=== PATIENT | male | born 1970 | race Caucasian/White ===

== ENCOUNTER 2025-08-05 16:10 | Emergency (ER) | payer SELFPAY ==
[~2025-08-05] VITALS: Ht 180.3 cm; Wt 80.0 kg
[2025-08-05 16:30] VITALS: BP 132/90; PULSE 88; RESP 18; TEMP 36.9; O2SAT 98
== END 2025-08-05 16:34 | disposition left against medical advice (07) ==
LOC: ER 16:10
DX: F10.129 Alcohol abuse with intoxication, unspecified (principal); Z53.21 Procedure and treatment not carried out due to patient leaving prior to being seen by health care provider; Y90.9 Presence of alcohol in blood, level not specified
CPT/HCPCS: 99281

== ENCOUNTER 2025-08-06 15:28 | Emergency (ER) | payer SELFPAY ==
[~2025-08-06] VITALS: Ht 188 cm; Wt 82.0 kg
[2025-08-06 15:34] VITALS: O2SAT 99
[2025-08-06 16:25] LABS: BASOPHILS % 1.2 % (0.0-2.0); EOSINOPHILS % 1.9 % (0.0-5.0); HEMATOCRIT. 48.1 % (42.0-52.0); HEMOGLOBIN. 16.4 g/dL (14.0-18.0); LYMPHOCYTES % 40.5 % (20.0-50.0); MEAN PLATELET VOLUME 6.5 fl (7.4-10.4); MONOCYTES % 5.9 % (2.0-8.0); NEUTROPHILS % 50.5 % (40.0-76.0); PLATELET 321 x1000/uL (130-400); RED BLOOD CELL COUNT 5.10 mill/uL (4.7-6.1); RED CELL DISTRIBUTION WIDTH 13.2 % (11.6-14.6)
[2025-08-06 16:43] LABS: CREATININE 1.0 mg/dL (0.6-1.3)
[2025-08-06 16:44] LABS: UREA NITROGEN BLOOD 8 mg/dL (9-23)
[2025-08-06 16:45] LABS: ASPARTATE AMINOTRANSFERASE 39 IU/L (<34)
[2025-08-06 16:46] LABS: BILIRUBIN DIRECT 0.2 mg/dL (<=3.0); BILIRUBIN TOTAL 0.6 mg/dL (0.1-1.0); PROTEIN TOTAL 8.2 g/dL (6.0-8.3)
[2025-08-06 20:24] VITALS: BP 116/78; PULSE 78; RESP 16; TEMP 36.6; O2SAT 99
== END 2025-08-06 20:53 | disposition home or self-care (01) ==
LOC: ER 15:28
DX: F10.129 Alcohol abuse with intoxication, unspecified (principal); R51.9 Headache, unspecified; Y90.9 Presence of alcohol in blood, level not specified
CPT/HCPCS: 36415; 80048; 80076; 80320; 85025; 99284; G0480

== ENCOUNTER 2025-08-07 15:52 | Emergency (ER) | payer SELFPAY ==
[~2025-08-07] VITALS: Ht 177.8 cm; Wt 82.0 kg
[2025-08-07 16:23] VITALS: O2SAT 98
[2025-08-07 23:05] VITALS: BP 152/70; PULSE 100; RESP 18; TEMP 37; O2SAT 98
[2025-08-08] MEDS ORDERED: BICT1TAB3 (11:24)
[2025-08-08] MEDS ORDERED: LEVE750T4 PO (11:24)
== END 2025-08-07 23:24 | disposition home or self-care (01) ==
LOC: ER 15:52
DX: F10.129 Alcohol abuse with intoxication, unspecified (principal); Y90.9 Presence of alcohol in blood, level not specified
CPT/HCPCS: 99283

== ENCOUNTER 2025-08-08 00:08 | Inpatient (IN) | payer SELFPAY ==
[~2025-08-08] VITALS: Ht 180.3 cm; Wt 80.3 kg
[2025-08-08 00:39] VITALS: O2SAT 100
[2025-08-08] MEDS: LEVOFLOXACIN 750MG PREMIX 150 ML IV ONE (02:44)
[2025-08-08 02:48] LABS: BASOPHILS % 0.8 % (0.0-2.0); EOSINOPHILS % 1.5 % (0.0-5.0); HEMATOCRIT. 46.3 % (42.0-52.0); HEMOGLOBIN. 15.8 g/dL (14.0-18.0); LYMPHOCYTES % 37.0 % (20.0-50.0); MEAN PLATELET VOLUME 6.8 fl (7.4-10.4); MONOCYTES % 9.9 % (2.0-8.0); NEUTROPHILS % 50.8 % (40.0-76.0); PLATELET 277 x1000/uL (130-400); RED BLOOD CELL COUNT 4.89 mill/uL (4.7-6.1); RED CELL DISTRIBUTION WIDTH 13.0 % (11.6-14.6)
[2025-08-08 03:00] LABS: CREATININE 1.0 mg/dL (0.6-1.3); UREA NITROGEN BLOOD 10 mg/dL (9-23)
[2025-08-08] MEDS ORDERED: LORAZEPAM 2MG/ML UD SYRINGE IV PRN (03:45)
[2025-08-08] MEDS ORDERED: IPRATROPIUM/ALBUTEROL 0.5-3(2.5)MG/3ML NEB HHN PRN (03:45)
[2025-08-08] MEDS: MVI, ADULT NO.1 10 ML, FOLIC ACID 1 MG, THIAMINE HCL 100 MG in SODIUM CHLORIDE 0.9% 1,0... IV SCH (03:45)
[2025-08-08] MEDS ORDERED: ONDANSETRON HCL 4MG/2ML INJ IV PRN (03:45)
[2025-08-08] MEDS ORDERED: CLONIDINE 0.1MG TABLET PO PRN (03:45)
[2025-08-08] MEDS ORDERED: ACETAMINOPHEN 325MG TABLET PO PRN ×2 (03:45)
[2025-08-08] MEDS: LEVETIRACETAM 750 MG in SODIUM CHLORIDE 0.9% 100 ML IV SCH (03:45)
[2025-08-08] MEDS ORDERED: GUAIFENESIN 200MG/10ML SUGAR FREE UDC PO PRN (03:45)
[2025-08-08] MEDS ORDERED: DIPHENHYDRAMINE 50MG/ML VIAL IV PRN (03:45)
[2025-08-08] MEDS: LEVETIRACETAM 1000MG PREMIX 100 ML IV SCH (04:05)
[2025-08-08] MEDS ORDERED: NON FORMULARY MED XX SCH (05:30)
[2025-08-08] MEDS: SODIUM CHLORIDE 0.9% 1,000 ML IV SCH (05:56)
[2025-08-08] MEDS: CHLORDIAZEPOXIDE 25MG CAPSULE PO SCH (06:08)
[2025-08-08 07:58] LABS: LACTATE DEHYDROGENASE 189 IU/L (120-246); TROPONIN I HIGH SENSITIVITY < 4 ng/L (3.0-53)
[2025-08-08 07:59] LABS: PHOSPHORUS 2.7 mg/dL (2.5-4.9)
[2025-08-08 08:49] LABS: CREATININE 0.9 mg/dL (0.6-1.3); UREA NITROGEN BLOOD 10 mg/dL (9-23)
[2025-08-08] MEDS: PANTOPRAZOLE SODIUM 40 MG/VIAL IV SCH (08:55)
[2025-08-08 09:05] VITALS: O2SAT 98
[2025-08-08] MEDS: THIAMINE HCL 100MG TABLET PO SCH (10:19)
[2025-08-08 10:33] VITALS: BP 121/79; PULSE 81; RESP 16; TEMP 36.5848
[2025-08-08] MEDS ORDERED: LEVE750T4 PO (11:24)
[2025-08-08] MEDS ORDERED: BICT1TAB3 (11:24)
[2025-08-09 06:18] LABS: ABSOLUTE BASOPHILS 0.1 x10E3/uL (0.0-0.2); ABSOLUTE EOSINOPHILS 0.1 x10E3/uL (0.0-0.4); ABSOLUTE LYMPHOCYTES 1.6 x10E3/uL (0.7-3.1); ABSOLUTE MONOCYTES 0.6 x10E3/uL (0.1-0.9); ABSOLUTE NEUTROPHILS 2.5 x10E3/uL (1.4-7.0); BASOPHILS 1 % (Not Estab.); EOSINOPHILS 1 % (Not Estab.); IMMATURE GRANULOCYTES 0 % (Not Estab.); IMMATURE GRANULOCYTES ABSOLUTE 0.0 x10E3/uL (0.0-0.1); LYMPHOCYTES 33 % (Not Estab.); MEAN CORPUSCULAR HGB CONC. 33.3 g/dL (31.5-35.7); MONOCYTES 12 % (Not Estab.); NEUTROPHILS 53 % (Not Estab.); PLATELETS 289 x10E3/uL (150-450); RBC 4.52 x10E6/uL (4.14-5.80); RED CELL DISTRIBUTION WIDTH 12.3 % (11.6-15.4); WBC 4.7 x10E3/uL (3.4-10.8)
[2025-08-09 10:07] LABS: % CD 3 POS. LYMPHOCYTES 85.1 % (57.5-86.2); % CD 4 POS. LYMPHOCYTES 49.1 % (30.8-58.5); % CD 8 POS. LYMPH 35.6 % (12.0-35.5); ABSOLUTE CD 3 1362 /uL (622-2402); ABSOLUTE CD 4 HELPER 786 /uL (359-1519); ABSOLUTE CD 8 SUPPRESSOR 570 /uL (109-897)
== END 2025-08-08 11:45 | disposition left against medical advice (07) | DRG 53 ==
LOC: ER 00:10 → 5WST 03:39 → EDBEDREQ 03:40 → EDBEDREQTM 03:40
PROVIDERS: ADMIT Internal Medicine; ATTEND Internal Medicine
DX: G40.509 Epileptic seizures related to external causes, not intractable, without status epilepticus (principal); G92.9 Unspecified toxic encephalopathy; F10.229 Alcohol dependence with intoxication, unspecified; Z21 Asymptomatic human immunodeficiency virus [HIV] infection status; J45.909 Unspecified asthma, uncomplicated; Z53.29 Procedure and treatment not carried out because of patient's decision for other reasons; Z79.899 Other long term (current) drug therapy; F41.9 Anxiety disorder, unspecified; Y90.8 Blood alcohol level of 240 mg/100 ml or more
CPT/HCPCS: 36415; 80048; 80320; 82542; 82550; 83615; 83735; 84100; 84484; 85025; 86359; 86360; 96365; 99285; J1953; J1956; J2470; J3411; J3490; J7030; J7050; G0480